=== PATIENT | female | born 1995 | race Two or more races ===

== ENCOUNTER 2025-05-21 10:45 | Emergency (ER) | payer BC ==
[~2025-05-21] VITALS: Ht 162.6 cm; Wt 77.3 kg
[2025-05-21 10:46] VITALS: TEMP 97.5
[2025-05-21 11:18] LABS: MEAN PLATELET VOLUME 8.0 FL (7.4-10.4); RED CELL DISTRIBUTION WIDTH 13.3 % (11.5-14.5)
[2025-05-21 11:19] LABS: URINE HCG NEGATIVE (NEG)
--- NOTE | 2025-05-21 11:19 | Physician Documentation ---
History of Present Illness General Chief Complaint: Flank Pain Stated Complaint: R SIDED FLANK PAIN Time Seen by MD: 11:19 History of Present Illness Initial Comments 30 year old female presents to the emergency department for complaints of flank pain that began ten days ago. Patient is accompanied by family who state that her pain began 10 days ago, it was present for four days and had ceased. Today the pain came back. She states it is located in her right flank and it radiates to her front. She endorses nausea and vomiting, but denies any urinary issues or . Medication Reconciliation Allergies: Coded Allergies: No Known Allergies (Unverified , 05/21/25) Scheduled PRN Hydrocodone Bit/Acetaminophen (Hydrocodone-Apap 10-325 Tablet), 1 TABLET PO Q8H PRN for pain Ibuprofen (Ibuprofen), 1 TAB PO Q6H PRN for pain ONDANSETRON ODT 4mg tablet (Ondansetron Odt), 1 TABLET PO Q6H PRN for nause a/vomiting Discontinued Medications Hydrocodone Bit/Acetaminophen (Hydrocodone-Apap 10-325 Tablet), 1 TABLET PO Q8H PRN for pain Discontinued Reason: Prescription changed Past Medical History Past Medical History: Thyroid (unspecified) Review of Systems All Other Systems at this time: Reviewed and Negative ROS 30 year old female presents to the emergency department for complaints of flank pain that began ten days ago. Patient is accompanied by family who state that her pain began 10 days ago, it was present for like four days ago and stopped. Today the pain came back. She states it is located in her right flank and it radiates to her front. She endorses nausea and vomiting, but denies any urinary issues or . Physical Exam Physical Exam Vital Signs: RN Vital Signs have been reviewed: Yes, Temperature: 97.5, Source: Temporal, Heart Rate: 61, Respiratory Rate: 16, BP: 126/83, Pulse Oximetry: 99, Weight: 77.270 Oxygen Flow Rate: 0 Pulse Oximetry Reflects: adequate oxygenation Physical Exam VITALS: Reviewed and as above. GENERAL: Alert, no apparent distress. HEENT: Normocephalic, atraumatic. PERRL, EOMI. Dry mucosa, no erythema. RESPIRATORY: Lungs clear, normal breath sounds, no respiratory distress. CHEST: No accessory muscle use, no retractions. CV: Regular rate and rhythm. No edema, no murmur, No: JVD GI: Soft, non-tender, bowel sounds present. No rebound, guarding, or rigidity. BACK: Slight right sided flank pain. no swelling. MUSCULOSKELETAL: No deformities, no edema SKIN: Warm and dry, no rash. NEURO: Oriented x4. No motor or sensory deficit. PSYCH: Normal mood and affect, no agitation. Progress Results/Orders Results/Orders Orders - VLADISLAV FARIAS MD Ct Abdomen Pelvis (05/21/25 11:45) Completed Orders - VLADISLAV FARIAS MD Hcg, Ur Ql (05/21/25 10:49) Cbc/Diff (05/21/25 10:49) BMP (05/21/25 10:49) Lipase (05/21/25 10:49) CMP (05/21/25 10:49) Ua W/Microscopic, Cult If Ind (05/21/25 11:04) Ondansetron Inj. (Zofran 4mg/2ml Vial) (05/21/25 11:25) Ketorolac Trometh 15mg/Ml Vial (Toradol (05/21/25 11:25) Ct Abdomen Pelvis (05/21/25 11:45) Tamsulosin Capsule (Flomax Capsule) (05/21/25 21:00) Hydrocodone/Apap 5/325mg Tab ([place] 5/32 (05/21/25 12:45) Tamsulosin Capsule (Flomax Capsule) (05/21/25 13:15) Tamsulosin Capsule (Flomax Capsule) (05/21/25 13:15) Oxycodone/Acetaminophen Tablet (Percocet (05/21/25 13:20) Vital Signs 05/21/25 05/21/25 05/21/25 05/21/25 10:46 11:52 13:05 13:25 Temp 97.5 Pulse 61 Resp 16 18 18 18 B/P (MAP) 126/83 Pulse Ox 99 O2 Flow Rate 0 05/21/25 13:54 Pulse 72 Resp 16 B/P (MAP) 124/81 Pulse Ox 99 Laboratory Tests Test 05/21/25 11:04 05/21/25 11:05 Urine Specimen Description Cln catch midstream Urine Color Yellow Urine Clarity Clear Urine pH 6.0 Urine Specific [place] 1.015 Urine Protein Negative Urine Glucose (UA) Negative Urine Ketones Negative Urine Occult Blood Small Urine Nitrite Negative Urine Bilirubin Negative Urine Urobilinogen 0.2 Urine Leukocyte Esterase Negative Urine RBC 3-10 Urine WBC 0-4 Urine Squamous Epithelial Cells Few Urine Bacteria Few Urine Culture Indicated Not ind Volume Urine Centrifuged 10 ml Urine HCG, Qualitative Negative Urine Comment White Blood Count 8.5 Red Blood Count 4.85 Hemoglobin 13.2 Hematocrit 39.9 Mean Corpuscular Volume 82.3 Mean Corpuscular Hemoglobin 27.1 Mean Corpuscular Hemoglobin Concent 33.0 Red Cell Distribution Width 13.3 Platelet Count 301 Mean Platelet Volume 8.0 Neutrophils (%) (Auto) 60.3 Lymphocytes (%) (Auto) 31.7 Monocytes (%) (Auto) 6.0 Eosinophils (%) (Auto) 1.8 Basophils (%) (Auto) 0.2 Neutrophils # (Auto) 5.1 Lymphocytes # (Auto) 2.7 Monocytes # (Auto) 0.5 Eosinophils # (Auto) 0.1 Basophils # (Auto) 0.0 CBC Comment Sodium Level 141 Potassium Level 3.6 Chloride Level 104 Carbon Dioxide Level 25.2 Anion Gap 12 Blood Urea Nitrogen 16 Creatinine 0.79 Estimated GFR/1.73 m2 84 BUN/Creatinine Ratio 20.3 H Glucose Level 135 H Calcium Level 8.9 Total Bilirubin 0.6 Aspartate Amino Transf (AST/SGOT) 20 Alanine Aminotransferase (ALT/SGPT) 22 Alkaline Phosphatase 74 Total Protein 8.1 Albumin 3.9 Globulin 4.2 Albumin/Globulin Ratio 0.9 L Lipase 34 Chemistry Comments EKG/XRAY/CT/US/VASC/MRI CT : Impression EXAM: CT CT ABDOMEN PELVIS History: abd pain Comparison Study: None TECHNIQUE: Multidetector spiral CT of the abdomen and pelvis was performed from lung bases to pubic symphysis. Imaging was performed without intravenous contrast. Coronal and sagittal multiplanar reformats were obtained from the axial data set by the technologist. Radiation Dose : 1. Abdomen/Pelvis: CTDIvol 24.4 mGy, DLP 1253.9 mGy*cm. FINDINGS: Evaluation of vasculature and solid organs is limited due to lack of intravenous contrast use. Lung Bases: Lung bases are clear. Visualized portions of the heart and pericardium are unremarkable. Liver: The liver is normal in size. No focal lesions. Gallbladder and Biliary Tree: The gallbladder is unremarkable No intrahepatic or extrahepatic biliary ductal dilatation. Spleen: Unremarkable Pancreas: The pancreas is grossly unremarkable. Adrenal Glands: Unremarkable Kidneys: There is mild right hydroureteronephrosis due to 5 mm proximal right ureteral calculus. Left kidney is unremarkable. GI tract: The stomach is grossly normal in appearance. No evidence of small bowel wall thickening or abnormal dilatation to suggest bowel obstruction. The colon is unremarkable. The appendix is normal in caliber without inflammatory changes. Peritoneum/mesentery/retroperitoneum. No evidence of free intraperitoneal air. No ascites. No evidence of suspicious lymphadenopathy. Abdominal Wall: Unremarkable. Vasculature: The visualized abdominal aorta is normal in size and caliber. Evaluation of abdominal and pelvic vessels is limited due to lack of intravenous contrast. Urinary Bladder: Grossly unremarkable for degree of distention. Pelvic Organs: Unremarkable Musculoskeletal: No aggressive focal bony lesions, acute fractures or dislocation. IMPRESSION: 1. Mild right hydroureteronephrosis due to 5 mm proximal right ureteral calculus. Electronically Signed by:RAÚL FRASER MD Date & Time: 05/21/25 1222 Reviewed by [facility] Medical Decision Making Additional information obtaine: old records Findings 30-year-old female presents with sudden onset flank pain the patient has right flank pain the patient has a clinical presentation consistent with renal colic she was given IV Toradol and IV fluids in the emergency department and CT imaging showed a 4-5 mm stone in the right ureter the patient had her pain controlled with the Toradol as well as an oral Percocet she had her labs were reviewed. I did independently reviewed the CT scan showed no tumors there was no significant hydro nephrosis there was mild hydronephrosis and there was a 5 mm kidney stone interpreted as showing such the patient is radiology interpretation was reviewed the patient will be discharged with Flomax [place] as well as Zofran she has been advised that if for pain continue she should follow up with the Urology. The patient's pulse oximetry was interpreted as adequate normal. Differential Diagnosis Biliary colic, gastritis, small-bowel obstruction, appendicitis Departure Time of Disposition: 12:43 Disposition: 01 HOME / SELF CARE / HOMELESS Impression: Primary Impression: Renal colic Condition: Stable Discharge Instructions: Renal Colic Referrals: NO PRIMARY CARE PROVIDER (PCP) KATARZYNA CHAKRABORTY MD Prescriptions Hydrocodone Bit/Acetaminophen (Hydrocodone-Apap 10-325 Tablet) 10mg/325mg Tablet 1 TABLET PO Q8H PRN for pain, #10 TABLET Prov: LATRELL BONILAL 05/21/25 Ibuprofen (Ibuprofen) 600 Mg Tablet 1 TAB PO Q6H PRN for pain, #30 TAB Prov: LATRELL BONILLA 05/21/25 ONDANSETRON ODT 4mg tablet (ONDANSETRON ODT) 4 Mg Tab.rapdis 1 TABLET PO Q6H PRN for nausea/vomiting, #12 TABLET Prov: LATRELL BONILLA 05/21/25 Education Educated: Patient, Family Educated regarding: diagnosis, treatment, prognosis, need for follow up Signature Scribe Signature: Scribed by Angelo Díaz Attestation: The note accurately reflects work and decisions made by me.Vladislav Farias MD 05/22/25 17:52 VLADISLAV FARIAS MD May 21, 2025 11:19 LATRELL BONILLA May 21, 2025 19:01
[2025-05-21 11:21] LABS: LEUKOCYTE ESTERASE ,URINE NEGATIVE (Neg); NITRITES, URINE NEGATIVE (Neg); OCCULT BLOOD,URINE SMALL (Neg)
[2025-05-21 11:22] LABS: UA COLLECTION TYPE CLN CATCH MIDSTREAM
[2025-05-21 11:29] LABS: CREATININE 0.79 MG/DL (0.40-0.90); TOTAL CARBON DIOXIDE 25.2 MMOL/L (24-32); eCRCL 88 ML/MIN; eGFR 84 ML/MIN
[2025-05-21] MEDS: ondansetron/PF 4mg/2ml inj IV ONE (11:35)
[2025-05-21] MEDS: ketorolac trometh 15mg/ml vial 15 MG/ML ML IV ONE (11:35)
[2025-05-21 11:47] LABS: SQUAMOUS EPITHELIAL CELL,UR FEW /LPF (FEW)
--- NOTE | 2025-05-21 12:24 | RADIOLOGY REPORT ---
EXAM: CT CT ABDOMEN PELVIS History: abd pain Comparison Study: None TECHNIQUE: Multidetector spiral CT of the abdomen and pelvis was performed from lung bases to pubic symphysis. Imaging was performed without intravenous contrast. Coronal and sagittal multiplanar reformats were obtained from the axial data set by the technologist. Radiation Dose : 1. Abdomen/Pelvis: CTDIvol 24.4 mGy, DLP 1253.9 mGy*cm. FINDINGS: Evaluation of vasculature and solid organs is limited due to lack of intravenous contrast use. Lung Bases: Lung bases are clear. Visualized portions of the heart and pericardium are unremarkable. Liver: The liver is normal in size. No focal lesions. Gallbladder and Biliary Tree: The gallbladder is unremarkable No intrahepatic or extrahepatic biliary ductal dilatation. Spleen: Unremarkable Pancreas: The pancreas is grossly unremarkable. Adrenal Glands: Unremarkable Kidneys: There is mild right hydroureteronephrosis due to 5 mm proximal right ureteral calculus. Left kidney is unremarkable. GI tract: The stomach is grossly normal in appearance. No evidence of small bowel wall thickening or abnormal dilatation to suggest bowel obstruction. The colon is unremarkable. The appendix is normal in caliber without inflammatory changes. Peritoneum/mesentery/retroperitoneum. No evidence of free intraperitoneal air. No ascites. No evidence of suspicious lymphadenopathy. Abdominal Wall: Unremarkable. Vasculature: The visualized abdominal aorta is normal in size and caliber. Evaluation of abdominal and pelvic vessels is limited due to lack of intravenous contrast. Urinary Bladder: Grossly unremarkable for degree of distention. Pelvic Organs: Unremarkable Musculoskeletal: No aggressive focal bony lesions, acute fractures or dislocation. IMPRESSION: 1. Mild right hydroureteronephrosis due to 5 mm proximal right ureteral calculus.
[2025-05-21] MEDS ORDERED: ONDA-243 PO ×2 (12:35→19:01)
[2025-05-21] MEDS ORDERED: IBUP600T52 PO ×2 (12:56→19:01)
[2025-05-21] MEDS: HYDROcodone/acetaminophen 5mg/325mg tablet PO ONE (13:05)
[2025-05-21] MEDS ORDERED: HYDR-3973 PO ×2 (13:10→19:01)
[2025-05-21] MEDS: oxyCODONE/APAP 5-325mg tablet PO ONE (13:25)
[2025-05-21 13:54] VITALS: BP 124/81; PULSE 72; RESP 16; O2SAT 99
== END 2025-05-21 13:56 | disposition home or self-care (01) ==
LOC: ER 10:46
DX: N23 Unspecified renal colic (principal)
CPT/HCPCS: 36415; 74176; 80053; 81001; 81025; 83690; 85025; 96374; 96375; 99285; J1885; J2405

== ENCOUNTER 2025-05-23 10:13 | Emergency (ER) | payer BC ==
[~2025-05-23] VITALS: Ht 162.6 cm; Wt 79.4 kg
[~2025-05-23 10:13] MED LIST: HYDR-3973 PO; IBUP600T52 PO; ONDA-243 PO
--- NOTE | 2025-05-23 10:30 | Physician Documentation ---
History of Present Illness Chief Complaint: Flank Pain Stated Complaint: KIDNEY STONES Time Seen by MD: 10:24 HPI 30-year-old female the ED with right flank pain nausea vomiting and difficulty getting into a comfortable position. They were reportedly seen in the hospital last week had a CT completed in have has a 5 mm stone in the right ureter. THIS PATIENT HAS TAKEN TAMSULOSIN FOR THE FOR THE LAST TWO DAYS PRIOR TO HER HAVING INCREASED FLANK PAIN Medication Reconciliation Allergies: Coded Allergies: No Known Allergies (Unverified , 05/23/25) Scheduled PRN Hydrocodone Bit/Acetaminophen (Hydrocodone-Apap 10-325 Tablet), 1 TABLET PO Q8H PRN for pain Ibuprofen (Ibuprofen), 1 TAB PO Q6H PRN for pain ONDANSETRON ODT 4mg tablet (Ondansetron Odt), 1 TABLET PO Q6H PRN for nausea/vomiting Discontinued Medications Hydrocodone Bit/Acetaminophen (Hydrocodone-Apap 10-325 Tablet), 1 TABLET PO Q8H PRN for pain Discontinued Reason: Prescription changed Past Medical History Past Medical History: Thyroid (unspecified) Review of Systems All Other Systems at this time: Reviewed and Negative ROS As stated above in the HPI, otherwise all systems are reviewed and negative. Physical Exam Vital Signs: Temperature: 97.9, Source: Temporal, Heart Rate: 78, Respiratory Rate: 16, BP: 136/83, Pulse Oximetry: 99, Weight: 79.400 Oxygen Flow Rate: 0 Physical Exam General: Alert, no apparent distress. Respiratory: Lungs clear, no respiratory distress. Chest: No accessory muscle use. Cardiovascular: Regular rate and rhythm, no murmurs. Gastrointestinal: Soft, nontender, nondistended. Bowels sounds present. POSITIVE CVA TENDERNESS RIGHT SIDE Extremities: Normal range of motion, no deformity. Neurologic: Oriented x4. Psychiatric: Normal mood and affect. Skin: Normal color, warm and dry. No edema, no ecchymosis. Progress Results/Orders Results/Orders Orders - LANDEN IBANEZ NP Ketorolac Trometh 30mg/Ml Vial (Toradol (05/23/25 10:25) Urinalysis, Cult If Indicated (05/23/25 10:25) Hcg, Ur Ql (05/23/25 10:25) Cbc/Diff (05/23/25 10:25) BMP (05/23/25 10:25) Lipase (05/23/25 10:25) CMP (05/23/25 10:25) Straight Cath For Urine Sample (05/23/25 10:25) Tamsulosin Capsule (Flomax Capsule) (05/23/25 21:00) Vital Signs 05/23/25 10:20 Temp 97.9 Pulse 78 Resp 16 B/P (MAP) 136/83 Pulse Ox 99 O2 Flow Rate 0 Medical Decision Making Additional information obtaine: N/A Findings DOES NOT PRESENT WITH ANY SIGNS OF ACUTE INFECTION HOWEVER BASED ON HER RECENT CT IS SHE IS LIKELY SUFFERING FROM A 5 MM RENAL CALCULUS IN HER URETER IT PASSES. RECEIVED MULTIPLE IV MEDICATIONS AND FLUIDS IN HIS NOW SLEEPING PEACEFULLY IN THE ED BED ADVICE OF HER PARTNER THAT SHE IS LIKELY PASSING THIS STONE. ALSO ADVISED HIM TO CONTINUE TAKING THE PRESCRIBED FLOMAX AND TO INCREASE FLUID INTAKE AND TAKE ZOFRAN FOR NAUSEA SHE REMAINS SYMPTOMATIC. THIS TIME SHE MEETS CRITERIA FOR SAFE DISCHARGE AFTER TWO SHE RECEIVES HER FLUID BOLUS Differential Dx:Considerations: Cholelithasis, Pancreatitis, Urinary tract infection, Urolithiasis Departure Disposition: 01 HOME / SELF CARE / HOMELESS Impression: Primary Impression: Calculus of kidney Condition: Improved Discharge Instructions: Kidney Stones Referrals: NO PRIMARY CARE PROVIDER (PCP) Signature Scribe Signature: y Attestation: Scribed for Landen Ibanez Photoresist Contact Printer by Landen Ibanez - REBECCA . 05/23/25 15:40 LANDEN IBANEZ DIAMOND DIE DRILLER May 23, 2025 10:30
[2025-05-23] MEDS: normal saline 1000ML IV soln IVB ONE (10:45)
[2025-05-23 10:57] LABS: MEAN PLATELET VOLUME 7.9 FL (7.4-10.4); RED CELL DISTRIBUTION WIDTH 13.0 % (11.5-14.5)
[2025-05-23 11:17] LABS: CREATININE 0.77 MG/DL (0.40-0.90); TOTAL CARBON DIOXIDE 23.0 MMOL/L (24-32); eCRCL 91 ML/MIN; eGFR 87 ML/MIN
[2025-05-23] MEDS: ketorolac trometh 30MG/ML vial 30 MG/ML VIAL IM ONE (11:54)
[2025-05-23 12:34] LABS: URINE HCG NEGATIVE (NEG)
[2025-05-23 12:37] LABS: LEUKOCYTE ESTERASE ,URINE NEGATIVE (Neg); NITRITES, URINE NEGATIVE (Neg); OCCULT BLOOD,URINE MODERATE (Neg)
[2025-05-23 12:43] LABS: UA COLLECTION TYPE CLN CATCH MIDSTREAM
[2025-05-23 12:44] LABS: MUCUS STRANDS NONE SEEN /LPF (Neg); SQUAMOUS EPITHELIAL CELL,UR FEW /LPF (FEW)
[2025-05-23 13:46] VITALS: BP 103/60; PULSE 68; RESP 14; TEMP 97.8; O2SAT 100
== END 2025-05-23 13:57 | disposition home or self-care (01) ==
LOC: ER 10:13
DX: N20.2 Calculus of kidney with calculus of ureter (principal)
CPT/HCPCS: 36415; 80053; 81001; 81025; 83690; 85025; 96360; 96374; 99283; J1885; J7030